=== PATIENT | female | born 1960 | race Caucasian/White ===

== ENCOUNTER 2018-04-17 08:53 | Day surgery (SDC) | payer OTHER ==
[2018-04-16 17:09] VITALS: BMI 26.3
[~2018-04-17] VITALS: Ht 172.7 cm; Wt 79.8 kg
[2018-04-17] VITALS (13 sets, daily range): BP systolic 95–152; BP diastolic 60–93; PULSE 84–104; RESP 11–23; Ht 172.7 cm; Wt 79.8 kg
[~2018-04-17 08:53] MED LIST: SEVOFLURANE 15 MIN ONE
[2018-04-17] MEDS ORDERED: SOD CHLORIDE 0.9% 1,000 ML IV SCH (09:00)
[2018-04-17] MEDS ORDERED: CEFAZOLIN 2 GM/50 ML (PMX) 50 ML IVPB ONE (09:00)
[2018-04-17] MEDS ORDERED: LOSA1TAB25 PO (09:30)
[2018-04-17] MEDS ORDERED: SERT50TA6 PO (09:30)
[2018-04-17] MEDS ORDERED: GABA400C14 PO (09:30)
[2018-04-17] MEDS ORDERED: ALPR0.254 PO (09:31)
[2018-04-17] MEDS ORDERED: TIZA4TAB PO (09:32)
[2018-04-17] MEDS ORDERED: ROCURONIUM 50 MG INJ ONE (13:56)
[2018-04-17] MEDS ORDERED: CEFAZOLIN 1 GM INJ ONE (13:56)
[2018-04-17] MEDS ORDERED: PROPOFOL 20 ML ONE (13:56)
[2018-04-17] MEDS ORDERED: MIDAZOLAM 1 MG/ML 2 ML INJ ONE (13:57)
[2018-04-17] MEDS ORDERED: FENTAnyl 50 MCG/ML VIAL ONE ×2 (13:57→15:31)
--- NOTE | 2018-04-17 14:19 | PREAC ---
Date/Time of Note Date/Time of Note DATE: 04/17/18 TIME: 14:17 Anesthesia Eval and Record Evaluation Time Pre-Procedure Interview DATE: 04/17/18 TIME: 14:17 Age 57 Sex female NPO: 8 hrs Preoperative diagnosis Right Breast Cancer Planned procedure Right Needle Localized partial Mastectomy Past Medical History Past Medical History: Includes Cardio: HTN Pulm: Smoking Hx (one PPD X30 yr) Psych: Anxiety Surgery & Anesthesia Issues No known issue Meds Anticoagulation: No Beta Constantine within 24 hr: No Reason Beta Constantine not given: Pt. not on B-Constantine Reported Medications Tizanidine Hcl* (Tizanidine Hcl*) 4 Mg Tablet, 4 MG PO BID PRN for SPASTICITY, TAB 04/17/18 Alprazolam* (Alprazolam*) 0.25 Mg Tablet, 0.25 MG PO DAILY PRN for ANXIETY, TAB 04/17/18 Gabapentin* (Gabapentin*) 400 Mg Capsule, 400 MG PO BID, #90 CAP 04/17/18 Sertraline Hcl* (Sertraline Hcl*) 50 Mg Tablet, 50 MG PO DAILY, #30 TAB 04/17/18 Losartan-Hydrochlorothiazide (Losartan-HCTZ) 100-25 Mg Tab, 1 TAB PO DAILY, TAB 04/17/18 Current Medications Sodium Chloride 1,000 ml @ 75 mls/hr [id number] IV ; Start 04/17/18 at 09:00; Stop 04/17/18 at 22:19 Meds reviewed: Yes Allergies Coded Allergies: No Known Drug Allergies (Unverified Allergy, Unknown, 04/17/18) Allergies Reviewed: Yes Labs/Studies Labs Reviewed: Reviewed by anesthesiologist Result Diagram: 04/17/18 1215 04/17/18 1215 Laboratory Tests 04/17/18 12:15 test: Negative Studies: ECG (n/a), CXR (n/a) Pre-procedure Exam Last vitals Vital Signs Date Temp Pulse Resp B/P (MAP) Pulse Ox O2 O2 Flow FiO2 Time Delivery Rate 04/17/18 97.0 85 18 152/93 98 Room Air 09:47 (112) Airway: Adequate mouth opening, Adequate thyromental dist Mallampati: Mallampati II Teeth: Normal Lung: Normal Heart: Normal ASA Physical Status ASA physical status: 2 Emergency: None Planned Anesthetic General/MAC: LMA Planned Pain Management Parenteral pain med Pre-operative Attestations Prior to commencing anesthesia and surgery, the patient was re-evaluated, there was verification of: *The patient's identity *The results of appropriate recent lab work and preoperative vital signs *The above evaluation not changing prior to induction *Anesthetic plan, risk benefits, alternative and complications discussed with patient/family; questions answered; patient/family understands, accepts and wishes to proceed. SANDRITA TINOCO MD Apr 17, 2018 14:19
[2018-04-17] MEDS ORDERED: hydrALAzine 20 MG INJ IV PRN (14:30)
[2018-04-17] MEDS ORDERED: ONDANSETRON 4 MG INJ IV PRN (14:30)
[2018-04-17] MEDS ORDERED: EPHEDrine SULFATE 50 MG/5 ML SYG IV PRN (14:30)
[2018-04-17] MEDS ORDERED: LABETALOL HCL 20MG INJ IV PRN (14:30)
[2018-04-17] MEDS ORDERED: FENTAnyl 50 MCG/ML VIAL IV PRN ×3 (14:30)
[2018-04-17] MEDS ORDERED: METOCLOPRAMIDE 10 MG INJ IV PRN (14:30)
[2018-04-17] MEDS ORDERED: DIPHENHYDRAMINE 50 MG INJ IV PRN (14:30)
[2018-04-17] MEDS ORDERED: MEPERIDINE 25 MG INJ IV PRN (14:30)
[2018-04-17] MEDS ORDERED: HYDROmorphONE 1 MG/5 ML IV SYRINGE IV PRN ×3 (14:30)
[2018-04-17] MEDS ORDERED: IPRATROPIUM (NEB) 0.5 MG/2.5 ML AMP HHN PRN (14:30)
[2018-04-17] MEDS ORDERED: OXYCODONE/ACETAMINOPHEN (5/325) TAB PO PRN ×2 (14:30)
[2018-04-17] MEDS ORDERED: METOCLOPRAMIDE 10 MG INJ ONE (15:24)
[2018-04-17] MEDS ORDERED: EPHEDrine SULFATE 50 MG/5 ML SYG ONE (15:24)
[2018-04-17] MEDS ORDERED: ONDANSETRON 4 MG INJ ONE (15:24)
[2018-04-17] MEDS ORDERED: DEXAMETHASONE 4 MG/ML 5 ML INJ ONE (15:24)
--- NOTE | 2018-04-17 15:26 | SIPON ---
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
[2018-04-17] MEDS ORDERED: HYDROCODONE/APAP (7.5/325) TAB PO PRN (15:30)
--- NOTE | 2018-04-17 15:42 | NUR ---
PACU: Received patient in pacu via gurney s/p right breast needle localized partial mastectomy AAOx2 vss HOB @ semi angulo position, breathing with ease, dressing dry & intact w/ FRANCIS drain patent draining, will continue to monitor.
--- NOTE | 2018-04-17 15:45 | PAC ---
Date/Time of Note Date/Time of Note DATE: 04/17/18 TIME: 15:44 Post-Anesthesia Notes Post-Anesthesia Note Last documented vital signs Vital Signs Date Temp Pulse Resp B/P (MAP) Pulse Ox O2 O2 Flow FiO2 Time Delivery Rate 04/17/18 98.4 85 18 121/72 98 Face Mask 10 L 15:47 (90) Activity: WNL Respiratory function: WNL Cardiovascular function: WNL Mental status: Baseline Pain reasonably controlled: Yes Hydration appropriate: Yes Nausea/Vomiting absent: Yes SANDRITA TINOCO MD Apr 17, 2018 15:45
--- NOTE | 2018-04-17 17:08 | OPR ---
DATE OF OPERATION: 04/17/2018 PREOPERATIVE DIAGNOSES: 1. Approximately 4 to 5 cm span of microcalcifications, upper outer quadrant of right breast. 2. Ductal carcinoma in situ. POSTOPERATIVE DIAGNOSES: 1. Approximately 4 to 5 cm span of microcalcifications, upper outer quadrant of right breast. 2. Ductal carcinoma in situ. OPERATION PERFORMED: Needle-directed right partial mastectomy using a 3-wire bracketing technique. ANESTHESIA: General. ANESTHESIOLOGIST: Ang Benitez MD SURGEON: Jonathan Chavez MD ENDODONTICS DENTIST: Miko Mccray MD and Garland Veloz MD INDICATIONS FOR PROCEDURE: The patient is a 57-year-old female who underwent screening mammography a nd was found to have 4 to 5 cm span of calcifications in the right breast. Core biopsy confirmed DCI S. The patient was counseled as to surgical options including mastectomy versus attempted bracketing technique for partial mastectomy. She wished to pursue breast conservation surgery. She consented and was scheduled for surgery. DESCRIPTION OF PROCEDURE: On the morning of surgery, the patient presented to [facility] where she underwent localization using 3-[facility]. Subsequently, she was brought to the operating theater, pl aced under general anesthesia. The right breast was prepped and draped in usual sterile fashion. A long curvilinear incision was made transversing the 3 previously placed wires. Subcutaneous tissue w as dissected with cautery. The skin edges were elevated with skin hooks and wide circumferential dis section of the tissue bracketed by the [address] using cautery. Dissection continued d own to the pectoralis major fascia. The specimen was then elevated and transected off of the fascia. It was removed, oriented and sent for radiographic confirmation of capture. Capture was confirmed. It was then sent for permanent pathologic analysis. The wound was irrigated. Minimal residual ble eding was controlled with cautery. Due to the large size of the defect, decision was made to place a #10 flat José Miguel-Mills drain into the wound cavity. This was done by bringing it through the right mid axillary line. It was cut to size, laid within the cavity and secured in place with 2-0 nylon thomas ture in the standard fashion. The skin was then reapproximated with a deep dermal layer of 4-0 Vicry l sutures, followed by final skin approximation with 5-0 PDS sutures in subcuticular fashion and anitra oin and Steri-Strips were applied. The patient tolerated procedure well. The estimated blood loss w as approximately 30 mL. There were no complications and the patient was transported in stable condit ion to the recovery room where circumferential compression dressing was applied. Dictated By: JONATHAN LOPES/KEELEY Conf#: [id number] DID#: [id number]
--- NOTE | 2018-04-17 17:10 | NUR ---
PACU: Transferred patient to [facility] AAOx4 vss HOB @ semi angulo position, breathing with ease, IV pain medication given , pain denies , dressing dry & intact w/ FRANCIS drain patent draining, Report given to RAUL Matias
--- NOTE | 2018-04-17 17:46 | NUR ---
PT TRANSFER FROM PACU [id number]. C/O SOME INC PAIN, JUST GIVEN PERCOCET IN PACU PER RN. MOM AT BEDSIDE. D/C TEACHING DONE AND INSTRUCTIONS GIVEN. DENIES NAUSEA. MD CALLED PER PT REQUEST SO HE CAN CALL IN A RX FOR HER
--- NOTE | 2018-04-19 21:21 | RADRPT ---
Vent Rate: 76 bpm RR Interval: 0 msec VT Interval: 136 msec QRS Duration: 94 msec QT Interval: 418 msec QTC Interval: 470 msec P-R-T Harmans: 50 - 44 - 52 degrees Normal sinus rhythm Normal ECG Electronically Signed By: Behzad Drew [id number]
== END 2018-04-17 17:46 | disposition home or self-care (01) ==
LOC: SDS 08:53
PROVIDERS: ATTEND Surgery Surgical Oncology
DX: D05.11 Intraductal carcinoma in situ of right breast (principal)
CPT/HCPCS: 19301; 71045; 80053; 84703; 85025; 85610; 85730; 88307; 93005; J0690; J1100; J1170; J2175; J2250; J2405; J2765; J3010; Z7512; Z7610

== ENCOUNTER 2018-07-11 23:06 | Inpatient (IN) | payer OTHER ==
[~2018-07-11] VITALS: Ht 172.7 cm; Wt 79.0 kg
[~2018-07-11 23:06] MED LIST changes: +ALPR0.254 PO; +GABA400C14 PO; +LOSA1TAB25 PO; +SERT50TA6 PO; -SEVOFLURANE 15 MIN ONE; +TIZA4TAB PO
[2018-07-12 01:02] VITALS: BP 142/87; PULSE 84; RESP 18
[2018-07-12 01:44] VITALS: BP 137/87; PULSE 83; RESP 16
[2018-07-12 02:20] VITALS: Ht 172.7 cm; Wt 79.0 kg
[2018-07-12] MEDS ORDERED: ONDANSETRON 4 MG INJ IV PRN (02:30)
[2018-07-12] MEDS: DEXTROSE 5%-0.45% NACL 1,000 ML IV SCH ×3 (02:53→17:29)
[2018-07-12] MEDS: morphine 2 MG INJ IV PRN ×5 (02:53→21:45)
[2018-07-12] MEDS: PIPER-TAZO 3.375 GM IV (PMX) 100 ML IVPB SCH ×5 (02:53→23:06)
[2018-07-12 07:51] VITALS: BP 125/71; PULSE 88; RESP 18
[2018-07-12] MEDS ORDERED: ALPRAZOLAM 0.25 MG TAB NGT SCH (09:00)
[2018-07-12] MEDS: GABAPENTIN 400 MG CAP PO SCH ×3 (09:08→20:30)
[2018-07-12] MEDS: SERTRALINE 50 MG TAB PO SCH (09:09)
[2018-07-12] MEDS: LOSARTAN 50 MG TAB PO SCH (09:10)
[2018-07-12] MEDS: VANCOMYCIN 1 GM (PMX) 250 ML IVPB SCH ×2 (09:11→20:31)
--- NOTE | 2018-07-12 11:08 | HP ---
DATE OF ADMISSION: 07/12/2018 CHIEF COMPLAINT: Right breast pain, swelling and redness. HISTORY OF PRESENT ILLNESS: This is a 58-year-old female with history of right breast ductal carcino ma in situ status partial mastectomy on April 17, 2018, presented with complaint of right breast swe lling, redness and tenderness for several days with progressively worsening. Patient noted subjectiv e fevers. Initial evaluation at outside hospital included ultrasound of the right breast. This show ed fluid collection on the right lateral aspect of the breast. Patient reports that about 2:00 in th e morning there was significant amount of green discharge from small opening in the right breast. PAST MEDICAL HISTORY: 1. Right breast cancer. 2. Hypertension. SOCIAL HISTORY: The patient denies tobacco or alcohol use. PHYSICAL EXAMINATION: GENERAL: Well-developed, well-nourished female who is in no apparent distress. VITAL SIGNS: Stable. She is afebrile. HEENT: Extraocular muscles intact. Pupils equal, reactive to light bilaterally. Sclerae are anicte servando. Oropharynx is clear and moist. NECK: Supple, no JVD, no carotid bruits. LUNGS: Clear to auscultation bilaterally, right breast with erythema all over the incision site and significant fluctuance at the extent of the lateral aspect of breast. The area is exquisitely tender . ABDOMEN: Soft, nontender, nondistended, normoactive bowel sounds. EXTREMITIES: No clubbing, cyanosis, or edema. NEUROLOGICAL: Nonfocal. ASSESSMENT: 1. A 58-year-old female with a right breast postoperative cellulitis and fluid collection. 2. History of ductal carcinoma in situ. 3. Status post right partial mastectomy on 04/17/2018. PLAN: 1. Admit to Med/Surg. IV vancomycin and Zosyn, send aspiration for culture. 2. Dr. Melo was consulted. I also contacted Dr. Mccray, who will see the patient today. 3. She really needs further incision and drainage. Dictated By: MAX RYAN/NTS Conf#: [id number] DID#: [id number] CC: JULI MELO MD;*EndCC*
[2018-07-12 16:17] VITALS: BP 109/62; PULSE 86; RESP 18
[2018-07-12] MEDS ORDERED: VANCOMYCIN 1 GM (PMX) 250 ML IVPB SCH (19:00)
--- NOTE | 2018-07-12 19:03 | CONS ---
DATE OF ADMISSION: 07/12/2018 DATE OF CONSULTATION: 07/12/2018 REQUESTING PHYSICIAN: Consultation was requested from Dr. Melo and I am covering Dr. Melo, so I will see the patient. HISTORY OF PRESENT ILLNESS AND CHIEF COMPLAINT: This is a 58-year-old lady, who came to the emergency room last night complaining of pain, swelling, redness and tenderness of the right breast especially at the site of previous operation which was done on 04/17/2018 for the DCIS cancer of the right breast. The patient states that after operation, she was doing fine. Almost 2 weeks after operation, she started having some redness and a little swelling in the middle of the incision line, so she went to Dr. Melo' office and over there, Dr. Melo made a small incision and drained slight amount of fluid and gave her clindamycin antibiotics then after the patient got better. She was doing fine up to about 10 days ago then she gradually started having pain, swelling, redness, tenderness and it gradually got worse so much that last night she had to come to the emergency room. She went to another hospital and then was transferred to some other hospital to this hospital because of insurance reasons. PAST MEDICAL HISTORY: 1. Right breast DCIS cancer. 2. Hypertension. SOCIAL HISTORY AND HABITS: The patient denies alcohol and tobacco. ALLERGIES: NOT KNOWN. PHYSICAL EXAMINATION: GENERAL: The patient is alert, awake, oriented, in no acute distress. VITAL SIGNS: Documented here today temperature at this time is 98.1 but earlier in the morning, it was 99.3, heart rate 83 and 88, respirations 18, blood pressure 125/71, saturation 96% on room air. HEAD AND NECK: Within normal limits. CHEST: Symmetrical expansion. BREASTS: Left breast looks normal. In right breast obviously, there is redness of skin of the right breast mostly in the anterior part fading in the periphery, but more intense in the central part especially over the area of the incision which has healed properly. On palpation, it is slightly tender. HEART: Regular rate, rhythm. LUNGS: Clear. ABDOMEN: Soft. EXTREMITIES: Legs have no pitting edema. LABORATORY DATA: On admission WBC today at 10:00 a.m. was 7500 with 64% segmented which is normal differential. Hemoglobin 12.4, hematocrit 36. No other test is available. IMPRESSION: 1. A 58-year-old female with right breast cellulitis, also infected fluid collection in the cavity of the previous partial mastectomy. 2. Status post right breast partial mastectomy for ductal carcinoma in situ. 3. History of high blood pressure. PLAN: The patient states that today assembler cards and announcements there was a lot of greenish drainage from the right breast middle of the incision and actually it appears that the nurses have sent the sample for culture. Also, the internal medicine hospitalist has started the patient on vancomycin and Zosyn IV antibiotics. 1. I agree with antibiotics. 2. We will try to keep the patient n.p.o. after midnight, observe and reevaluate the patient tomorrow morning and we will discuss it tomorrow morning with Dr. Melo and if the decision is made, we may proceed with taking the patient to the operating room and incision and drainage be done or possibly antibiotic alone will continue. Dictated By: REFUGIO SHARMA MD PS/NTS Conf#: [id number] DID#: [id number] CC: JULI MELO MD; MAX KIM MD;*EndCC* MTDD
[2018-07-12 19:23] VITALS: BP 110/71; PULSE 91; RESP 18
[2018-07-13] VITALS (19 sets, daily range): BP systolic 118–151; BP diastolic 77–93; PULSE 62–94; RESP 12–66
[2018-07-13] MEDS: ALPRAZOLAM 0.25 MG TAB PO SCH ×3 (00:07→20:38)
[2018-07-13] MEDS: morphine 2 MG INJ IV PRN ×5 (01:11→21:02)
[2018-07-13] MEDS: PIPER-TAZO 3.375 GM IV (PMX) 100 ML IVPB SCH (06:20)
[2018-07-13] MEDS: DEXTROSE 5%-0.45% NACL 1,000 ML IV SCH ×2 (06:28→18:30)
[2018-07-13] MEDS: GABAPENTIN 400 MG CAP PO SCH ×3 (08:16→20:38)
[2018-07-13] MEDS: SERTRALINE 50 MG TAB PO SCH (08:16)
[2018-07-13] MEDS: LOSARTAN 50 MG TAB PO SCH (08:16)
[2018-07-13] MEDS: VANCOMYCIN 1 GM (PMX) 250 ML IVPB SCH ×2 (08:24→20:38)
--- NOTE | 2018-07-13 10:04 | PN ---
Date/Time of Note Date/Time of Note DATE: 07/13/18 TIME: 10:01 Subjective Reports feeling better. No new complaints. No further drainage from the right breast Objective Vitals Vital Signs Date Temp Pulse Resp B/P (MAP) Pulse Ox O2 O2 Flow FiO2 Time Delivery Rate 07/13/18 98.5 70 16 130/83 93 07:27 (99) Intake and Output 07/12/18 07/12/18 07/13/18 1515:00 23:00 07:00 IntakeIntake Total 830 ml 1580 ml 1000 ml BalanceBalance 830 ml 1580 ml 1000 ml Lungs clear to auscultation bilaterally Cardiac regular rate and rhythm Right breast with tenderness to palpation and the right lateral phlegmon Abdomen soft nontender nondistended Extremities no edema Results Result Diagram: 07/13/18 04407/13/18 044 Medications Medications Current Medications Piperacillin Sod/ Tazobactam Sod 100 ml @ 200 mls/hr Q8 IVPB Last administered on 07/13/18at 06:20; Admin Dose 200 MLS/HR; Start 07/12/18 at 02:30 Dextrose/Sodium Chloride 1,000 ml @ 100 mls/hr Q10H IV Last administered on 07/13/18at 06:28; Admin Dose 100 MLS/HR; Start 07/12/18 at 02:30 Morphine Sulfate (morphine) 2 mg Q3H PRN IV SEVERE PAIN LEVEL 7-10 Last administered on 07/13/18 06:20; Admin Dose 2 MG; Start 07/12/18 at 02:30 Ondansetron HCl (Zofran Inj) 4 mg Q4H PRN IV NAUSEA AND/OR VOMITING; Start 07/12/18 at 02:30 Losartan Potassium (Cozaar) 100 mg DAILY PO Last administered on 07/12/18at 09:10; Admin Dose 100 MG; Start 07/12/18 at 09:00 Gabapentin (Neurontin) 400 mg TID PO Last administered on 07/12/18at 20:30; Admin Dose 400 MG; Start 07/12/18 at 09:00 Sertraline HCl (Zoloft) 50 mg DAILY PO Last administered on 07/12/18at 09:09; Admin Dose 50 MG; Start 07/12/18 at 09:00 Vancomycin HCl 250 ml @ 125 mls/hr Q12H IVPB Last administered on 07/13/18at 08:24; Admin Dose 125 MLS/HR; Start 07/12/18 at 09:00 Alprazolam (Xanax) 0.25 mg BID PO Last administered on 07/13/18at 00:07; Admin Dose 0.25 MG; Start 07/13/18 at 00:00 VTE Prophylaxis Risk score (from [facility])>0 risk: 1 SCD applied (from [facility]): Yes Lines/Catheters IV Catheter Type: Saline Lock Central line still needed: No Pedro in Place: No Assessment/Plan Assessment/Plan 58-year-old female with right mastitis and fluid collection Right breast ductal carcinoma in situ. Status post partial mastectomy in April 17, 2018 Continue IV vancomycin and Zosyn N.p.o. Await surgical evaluation for possible I&D MAX KIM MD Jul 13, 2018 10:04
--- NOTE | 2018-07-13 13:41 | HPN ---
Date/Time of Note Date/Time of Note DATE: 07/13/18 TIME: 13:40 Interval H&P Admission Note Pt. seen H&P reviewed: No system changes REFUGIO SHARMA MD Jul 13, 2018 13:41
--- NOTE | 2018-07-13 14:02 | PREAC ---
Date/Time of Note Date/Time of Note DATE: 07/13/18 TIME: 14:00 Anesthesia Eval and Record Evaluation Time Pre-Procedure Interview DATE: 07/13/18 TIME: 14:00 Age 58 Sex female NPO: 8 hrs Preoperative diagnosis R breast post op infection/abscess Planned procedure I&D R breast abscess Past Medical History Past Medical History: Includes (R breast CA) Cardio: HTN Surgery & Anesthesia Issues No known issue Meds Anticoagulation: No Beta Constantine within 24 hr: No Reason Beta Constantine not given: Pt. not on B-Constantine Reported Medications Tizanidine Hcl* (Tizanidine Hcl*) 4 Mg Tablet, 4 MG PO BID PRN for SPASTICITY, TAB 04/17/18 Alprazolam* (Alprazolam*) 0.25 Mg Tablet, 0.25 MG PO DAILY PRN for ANXIETY, TAB 04/17/18 Gabapentin* (Gabapentin*) 400 Mg Capsule, 400 MG PO BID, #90 CAP 04/17/18 Sertraline Hcl* (Sertraline Hcl*) 50 Mg Tablet, 50 MG PO DAILY, #30 TAB 04/17/18 Losartan-Hydrochlorothiazide (Losartan-HCTZ) 100-25 Mg Tab, 1 TAB PO DAILY, TAB 04/17/18 Current Medications Dextrose/Sodium Chloride 1,000 ml @ 100 mls/hr Q10H IV Last administered on 07/13/18at 06:28; Admin Dose 100 MLS/HR; Start 07/12/18 at 02:30 Morphine Sulfate (morphine) 2 mg Q3H PRN IV SEVERE PAIN LEVEL 7-10 Last administered on 07/13/18at 10:33; Admin Dose 2 MG; Start 07/12/18 at 02:30 Ondansetron HCl (Zofran Inj) 4 mg Q4H PRN IV NAUSEA AND/OR VOMITING; Start 07/12/18 at 02:30 Losartan Potassium (Cozaar) 100 mg DAILY PO Last administered on 07/12/18at 09 :10; Admin Dose 100 MG; Start 07/12/18 at 09:00 Gabapentin (Neurontin) 400 mg TID PO Last administered on 07/12/18at 20:30; Admin Dose 400 MG; Start 07/12/18 at 09:00 Sertraline HCl (Zoloft) 50 mg DAILY PO Last administered on 07/12/18at 09:09; Admin Dose 50 MG; Start 07/12/18 at 09:00 Vancomycin HCl 250 ml @ 125 mls/hr Q12H IVPB Last administered on 07/13/18at 08:24; Admin Dose 125 MLS/HR; Start 07/12/18 at 09:00 Alprazolam (Xanax) 0.25 mg BID PO Last administered on 07/13/18at 00:07; Admin Dose 0.25 MG; Start 07/13/18 at 00:00 Miscellaneous Information (*Rx Drug Level Order Reminder*) 1 ONCE ONCE XX ; Start 07/13/18 at 20:00; Stop 07/13/18 at 20:01 Meds reviewed: Yes Allergies Coded Allergies: No Known Drug Allergies (Unverified Allergy, Unknown, 04/17/18) Allergies Reviewed: Yes Labs/Studies Labs Reviewed: Reviewed by anesthesiologist Result Diagram: 07/13/18 0443 07/13/18 0443 Laboratory Tests 07/13/18 04:43 test: N/A Pre-procedure Exam Last vitals Vital Signs Date Temp Pulse Resp B/P (MAP) Pulse Ox O2 O2 Flow FiO2 Time Delivery Rate 07/13/18 98.7 64 66 144/88 96 Room Air 12:50 (106) Airway: Adequate mouth opening, Adequate thyromental dist Mallampati: Mallampati II Teeth: Normal Lung: Normal Heart: Normal ASA Physical Status ASA physical status: 2 Emergency: None Planned Anesthetic General/MAC: LMA Pre-operative Attestations Prior to commencing anesthesia and surgery, the patient was re-evaluated, there was verification of: *The patient's identity *The results of appropriate recent lab work and preoperative vital signs *The above evaluation not changing prior to induction *Anesthetic plan, risk benefits, alternative and complications discussed with patient/family; questions answered; patient/family understands, accepts and wishes to proceed. ABY REEVES Jul 13, 2018 14:02
[2018-07-13] MEDS ORDERED: PROPOFOL 20 ML ONE (14:06)
[2018-07-13] MEDS ORDERED: LIDOCAINE 2% (SDV) 5 ML INJ ONE (14:06)
[2018-07-13] MEDS ORDERED: FENTAnyl 50 MCG/ML VIAL ONE (14:06)
[2018-07-13] MEDS ORDERED: MIDAZOLAM 1 MG/ML 2 ML INJ ONE (14:06)
[2018-07-13] MEDS ORDERED: MEPERIDINE 25 MG INJ IV PRN (14:30)
[2018-07-13] MEDS ORDERED: morphine (1 MG/ML) 10ML SYRINGE IV PRN ×2 (14:30)
[2018-07-13] MEDS ORDERED: ONDANSETRON 4 MG INJ IV PRN (14:30)
[2018-07-13] MEDS ORDERED: ALBUTEROL 0.083% (NEB) 2.5 MG/3 ML AMP HHN PRN (14:30)
[2018-07-13] MEDS ORDERED: DIPHENHYDRAMINE 50 MG INJ IV PRN (14:30)
[2018-07-13] MEDS ORDERED: OXYCODONE/ACETAMINOPHEN (5/325) TAB PO PRN ×2 (14:30)
[2018-07-13] MEDS ORDERED: HYDROmorphONE 1 MG/5 ML IV SYRINGE IV PRN (14:30)
[2018-07-13] MEDS ORDERED: FENTAnyl 50 MCG/ML VIAL IV PRN ×2 (14:30)
[2018-07-13] MEDS ORDERED: LABETALOL HCL 20MG INJ IV PRN (14:30)
[2018-07-13] MEDS ORDERED: POLYMYXIN/BACITRACIN 1L IRRIG IRR ONE (14:43)
[2018-07-13] MEDS ORDERED: ONDANSETRON 4 MG INJ ONE (14:43)
[2018-07-13] MEDS ORDERED: FAMOTIDINE 20 MG INJ ONE (14:43)
--- NOTE | 2018-07-13 15:15 | PAC ---
Date/Time of Note Date/Time of Note DATE: 07/13/18 TIME: 15:14 Post-Anesthesia Notes Post-Anesthesia Note Last documented vital signs Vital Signs Date Temp Pulse Resp B/P (MAP) Pulse Ox O2 O2 Flow FiO2 Time Delivery Rate 07/13/18 98.7 64 66 144/88 96 Room Air 12:50 (106) Activity: WNL Respiratory function: WNL Cardiovascular function: WNL Mental status: Baseline Pain reasonably controlled: Yes Hydration appropriate: Yes Nausea/Vomiting absent: Yes FERNANDO MCDANIEL Jul 13, 2018 15:15
--- NOTE | 2018-07-13 15:15 | SIPON ---
Date/Time of Note Date/Time of Note DATE: 07/13/18 TIME: 15:08 Operative Report Preoperative Diagnosis Cellulitis and abscess of the right breast Postoperative Diagnosis The same Operation/Procedure Performed Incision and drainage of the cavity of the right breast status post partial mastectomy 2 months ago. Thorough irrigation with hydrogen peroxide and Betadine and placement of the 2 [place] drains. Closure of the cavity of the abscess with 2-0 nylon interrupted sutures. Surgeon see signature line general surgery physician assistant None Anesthesia: general Estimated blood loss: minimal Transfusion Required none Specimen 2 cultures were sent from the PUS in the cavity. Grafts/Implants none Complications none REFUGIO SHARMA MD Jul 13, 2018 15:15
[2018-07-13] MEDS: HYDROmorphONE 1 MG/5 ML IV SYRINGE IV PRN ×2 (15:53→16:12)
[2018-07-13] MEDS ORDERED: FENTAnyl 50 MCG/ML VIAL IV ONE (16:00)
--- NOTE | 2018-07-13 17:39 | OPR ---
DATE OF OPERATION: 07/13/2018 PREOPERATIVE DIAGNOSES: 1. Cellulitis and abscess of the right breast. 2. Status post right breast partial mastectomy for ductal carcinoma in situ performed on 04/17/2018. POSTOPERATIVE DIAGNOSES: 1. Cellulitis and abscess of the right breast. 2. Status post right breast partial mastectomy for ductal carcinoma in situ performed on 04/17/2018. PROCEDURES: 1. Incision and drainage of the abscess cavity. 2. Thorough irrigation with hydrogen peroxide and Betadine. 3. Closure of the roof of the cavity with #2-0 nylon. 4. Placement of 2 [place] drains in the cavity for drainage. SURGEON: Miko Sharma MD ANESTHESIA: General. ESTIMATED BLOOD LOSS: 5 mL. SPECIMEN: Two separate cultures from the pus in the abscess cavity and was sent for aerobic, anaerob ic and Gram stain. INDICATION: This is a 58-year-old female who had partial mastectomy of the right breast for DCIS on 04/17/2018. The patient has been experiencing pain, swelling, redness and tenderness of the right br east area about 2 weeks ago. Once she was referred to Dr. Chavez' office, she was given antibiotics b y mouth but apparently did not work, so eventually she came to the emergency room and was admitted wi th the diagnosis of cellulitis and abscess. After admission, abscess drained partially spontaneously but it was felt that there is a need for surgical incision and drainage of the abscess, so I discuss ed with the patient and patient agreed. Antibiotics were ready on board. PROCEDURE IN DETAILS: The patient was brought to the operating room, placed on operating table in thomas pine position. Anesthesia was induced by the anesthesiologist. The patient already has been receivi ng antibiotic, vancomycin and Zosyn on the floor. Timeout was called and site of the operation and p rocedure were discussed among the team. At this time, an incision was made over the scar of previous operation with a 15-blade and was deepened. A clamp was inserted. Yellowish slightly greenish pus started draining, so the incision over the scar was extended more laterally and to some extent medial ly. The whole cavity was exposed. Altogether about 40 mL of pus was suctioned out. Two culture tub es were sent for Gram stain and aerobic and anaerobic. After all the pus was drained from the cavity , hydrogen peroxide was instilled into the cavity and irrigated inside the cavity with hydrogen perox hans while scrubbing it with a sponge. Hydrogen peroxide was left in the cavity for a few minutes and then suctioned out. There was some of oozing from inside of the lining of the cavity. This was con trolled with electrocautery while all the lining of the cavity was coagulated with electrocautery. T hen, it was irrigated with normal saline solution and then Betadine solution was poured in the cavity and left for a few minutes and then was suctioned out. At this time, quarter inch Thiago drain 2 p ieces were placed inside the cavity and was brought out to the most lateral corner of the incision an d was sutured to the skin with 3-0 Prolene and then the remaining of wall of the cavity anteriorly wa s closed with #2-0 nylon vertical mattress interrupted sutures were applied. At the end, bulky dry d ressing was applied and taped to the skin chest wall. The patient tolerated procedure well. As was mentioned, estimated blood loss about 5 mL. Specimen 2 cultures tubes from the purulent fluid in the cavity. The patient was extubated in the operating room in stable condition, was transferred to rec overy room. Dictated By: MIKO SHARMA MD PS/NTS Conf#: [id number] DID#: [id number] CC: MAX KIM MD; JULI CHAVEZ MD;*End*
[2018-07-14] MEDS: morphine 2 MG INJ IV PRN ×7 (00:09→20:35)
[2018-07-14 02:00] VITALS: BP 120/76; PULSE 77; RESP 18
[2018-07-14] MEDS: DEXTROSE 5%-0.45% NACL 1,000 ML IV SCH ×3 (02:47→16:42)
[2018-07-14 07:24] VITALS: BP 133/78; PULSE 75; RESP 16
[2018-07-14] MEDS: LOSARTAN 50 MG TAB PO SCH (08:45)
[2018-07-14] MEDS: GABAPENTIN 400 MG CAP PO SCH ×3 (08:45→20:34)
[2018-07-14] MEDS: ALPRAZOLAM 0.25 MG TAB PO SCH ×2 (08:45→21:00)
[2018-07-14] MEDS: VANCOMYCIN HCL 1.25 GM in SOD CHLORIDE 0.9% 250 ML IVPB SCH ×2 (08:45→20:38)
[2018-07-14] MEDS: SERTRALINE 50 MG TAB PO SCH (08:45)
[2018-07-14] MEDS ORDERED: LIDOCAINE 1% (MPF) 5 ML VIAL SC ONE (10:00)
[2018-07-14] MEDS ORDERED: VANC1.2511 IV (10:38)
--- NOTE | 2018-07-14 10:39 | PDOCDIS ---
Discharge Instructions CONDITION [id number] Patient Condition: Vstch2l Good HOME CARE INSTRUCTIONS: Eitsy2Sx Diet Instructions: Mblov9l Regular ACTIVITY: [id number] Activity Restrictions: Flgaa4p Slowly Increase Activity FOLLOW UP/APPOINTMENTS Follow-up Plan pcp [address] Chavez 1 week MAX KMI MD Jul 14, 2018 10:39
[2018-07-14 15:14] VITALS: BP 139/87; PULSE 65; RESP 16
--- NOTE | 2018-07-14 16:37 | PN ---
DATE: 07/14/2018 Status post incision and drainage of right breast abscess, postop day #1. SUBJECTIVE: Complains of pain too much in the right breast at the site of operation. OBJECTIVE: GENERAL: Awake, alert, oriented x3. VITAL SIGNS: Temperature maximum today 98.5, heart rate 75, respirations 16, blood pressure 133/78, saturation 94% on room air. Vital signs stable. BREASTS: Dressing was changed. The color of the skin of the right breast is much better. Celluliti s has gotten much better after drainage of the abscess. The dressing which was applied in the operat ing room was partially soaked so it was removed and new dressing was applied. LABORATORY DATA: WBC 6000 with 53% segmented, hemoglobin 11.8, hematocrit 35.5. MICROBIOLOGY: The cultures which was sent from the floor on the day of admission has grown MRSA bact eria. The cultures that I sent during operation yesterday has not grown anything yet. PLAN: The patient should get antibiotics IV for probably around 2 weeks for MRSA. Apparently, the ospitalist physician, Dr. Kim, who is covering the insurance company for the [facility], has decided to di scharge the patient to the care of home health for vancomycin IV for 10 more days. So, from a surgic al point of view, the patient can be discharged to be followed by Dr. Chavez in Dr. Chavez' office next week. The patient is to call the office and make an appointment for next Friday. If they can make the arrangements for home health to definitely give the antibiotics per recommendation and the sched ule of Dr. Kim, then the patient is going to be discharged today. Dictated By: REFUGIO SHARMA MD PS/NTS Conf#: [id number] DID#: [id number] CC: MAX KIM MD;*EndCC*
--- NOTE | 2018-07-14 19:53 | DS ---
DATE OF ADMISSION: 07/12/2018 DATE OF DISCHARGE: DISCHARGE DIAGNOSES: 1. Right breast MRSA abscess status post incision and drainage of right breast abscess. 2. 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 A fair amount of green discharge was noted by the patient f gillowing the admission. She was started on IV vancomycin and Zosyn. The patient was seen in consult ation by Dr. Mccray. She was taken to the OR and underwent incision and drainage of the right breast abscess. The drains were placed. The culture grew MRSA. The patient is in a stable condition for discharge home with home health nurse. I have prescribed 10 days of IV vancomycin 1.25 grams q.12h. The patient will follow up with PCP and Dr. Chavez as outpatient. She remained afebrile during the h ospitalization. There was no evidence of leukocytosis. Dictated By: MAX KIM MD SK/NTS Conf#: [id number] DID#: [id number] CC: JULI CHAVEZ MD;*End*
[2018-07-14 20:20] VITALS: BP 163/82; PULSE 69; RESP 19
[2018-07-14 21:41] VITALS: BP 153/84; PULSE 71; RESP 18
== END 2018-07-14 22:30 | disposition home health service (06) | DRG 863 ==
LOC: 2NE 07-12 00:39
PROVIDERS: ADMIT Internal Medicine; ATTEND Internal Medicine
PROC: 0H9T00Z Drainage of Right Breast with Drainage Device, Open Approach (ICD-10-PCS; principal; 2018-07-13 13:00)
PROC: 02HV33Z Insertion of Infusion Device into Superior Vena Cava, Percutaneous Approach (ICD-10-PCS; 2018-07-14)
DX: T81.43XA Infection following a procedure, organ and space surgical site, initial encounter (principal); B95.62 Methicillin resistant Staphylococcus aureus infection as the cause of diseases classified elsewhere; N61.1 Abscess of the breast and nipple; Z85.3 Personal history of malignant neoplasm of breast; I10 Essential (primary) hypertension
CPT/HCPCS: 36569; 71045; 76937; 80053; 80202; 85025; 85610; 85730; 87070; J1170; J2250; J2270; J2405; J2543; J3010; J3370; J7042; J7050